=== PATIENT | female | born 2000 | race Caucasian/White ===

== ENCOUNTER 2022-12-31 07:44 | Emergency (ER) | payer OTHER, BC, SELFPAY ==
[2022-12-31 07:58] VITALS: BP 136/86; PULSE 86; TEMP 36.6; O2SAT 98; BMI 25.1
--- NOTE | 2022-12-31 08:42 | ED_ITS ---
HPI - General Adult General Date Seen: 12/31/22 Chief complaint: Laceration/Wound Stated complaint: Cut on left arm Time Seen by Provider: 12/31/22 08:13 Source: patient Mode of arrival: ambulatory Limitations: no limitations History of Present Illness HPI narrative: Patient is a 22-year-old who was at work and cut her left arm with a padded box sewer. Wound is on the forearm, no complaints of numbness, loss of function. Unsure of last tetanus. Or injuries or complaints. Related Data Allergies Allergy/AdvReac Type Severity Reaction Status Date / Time No Known Drug Allergies Allergy Verified 12/31/22 07:58 PFSH PFS Social History Smoking Status: Current every day smoker What tobacco products do you use: cigarettes Smoking packs per day: 1 Smoking cigarettes per day: 20.0 Years smoked: 9 Smoking pack-years: 9.00 Do you use any of these nicotine containing products: None Second hand tobacco smoke exposure: No How often do you have a drink containing alcohol: monthly or less How many standard drinks containing alcohol do you have on a typical day: 1 or 2 How often do you have six or more drinks on one occasion: Never AUDIT-C Alcohol total score: 1 Non-prescribed substance use: denies use service: No Exam Narrative: Exam Narrative: Vital signs reviewed In general, an alert, well-appearing young woman. Extremities: Examination of left forearm shows a 1/2 cm laceration on the volar aspect of the forearm. This extends into the subcutaneous fat but not into the muscle. No evidence of injury to deeper structures. Distal CMS is normal. Skin: Warm dry otherwise intact Const: Vital Signs, click to edit/add: Vital Signs - 24 hr 12/31/22 07:58 Temperature 97.9 F Pulse Rate [Pulse Oximeter] 86 Blood Pressure [Le ft Upper Arm] 136/86 Pulse Oximetry 98 Oxygen Delivery Me thod Room Air Course Course Hospital Course: Procedure note: Wound was anesthetized with lidocaine with epinephrine. There was a fair amount of tension on the wound so I elected to close with horizontal mattress sutures, total of 4 were placed using 5 0 nylon. She tolerated this well without immediate complication. A dressing is applied by the nurse. Her tetanus was updated in 2019. Vital Signs Vital signs: Initial Vital Signs Temperature 97.9 F 12/31/22 07:58 Temperature Source Temporal Artery Scan 12/31/22 07:58 Pulse Rate 86 12/31/22 07:58 Pulse Rhythm 12/31/22 07:58 Blood Pressure 136/86 12/31/22 07:58 Blood Pressure Mean 102 12/31/22 07:58 Blood Pressure Position Supine 12/31/22 07:58 Pulse Oximetry 98 12/31/22 07:58 Oxygen Delivery Method 12/31/22 07:58 Vital Signs Temperature 97.9 F 12/31/22 07:58 Pulse Rate 86 12/31/22 07:58 Blood Pressure 136/86 12/31/22 07:58 Pulse Oximetry 98 12/31/22 07:58 Oxygen Delivery Method 12/31/22 07:58 Temperature 97.9 F 12/31/22 07:58 Pulse Rate 86 12/31/22 07:58 Blood Pressure 136/86 12/31/22 07:58 Pulse Oximetry 98 12/31/22 07:58 Oxygen Delivery Method 12/31/22 07:58 Discharge Plan Discharge Clinical Impression: Laceration Patient Disposition: Home, Self-Care Condition: Improved Instructions: Laceration (DC) Additional Instructions: Routine wound care, keep some ointment such as Vaseline on the wound while it heals. Suture removal in clinic in 7-10 days. Return for signs of infection. Four stitches were placed. Stand Alone Forms: [facility] Info Instructions
== END 2022-12-31 09:09 | disposition home or self-care (01) ==
LOC: ED 09:06
PROVIDERS: Emergency Provider Emergency Medicine; PCP Physician Assistant
DX: S51.812A Laceration without foreign body of left forearm, initial encounter (principal); W26.0XXA Contact with knife, initial encounter
CPT/HCPCS: 12001; 99283